=== PATIENT | male | born 1995 | race Caucasian/White ===

== ENCOUNTER 2018-10-21 14:39 | Emergency (ER) | payer MEDICAID ==
[~2018-10-21] VITALS: Ht 175.3 cm; Wt 69.1 kg
[~2018-10-21 14:39] MED LIST: DEXM2.5T; DIPH25CA83 PO; HYDR1TAB PO; IBUP-1984 PO; METH27TA7 PO; RISP0.2555 PO
[2018-10-21 14:41] VITALS: BP 108/67
== END 2018-10-21 15:12 ==
LOC: ER 14:39
DX: S50.812A Abrasion of left forearm, initial encounter (principal); F12.90 Cannabis use, unspecified, uncomplicated; F17.200 Nicotine dependence, unspecified, uncomplicated; Z79.899 Other long term (current) drug therapy; Y04.0XXA Assault by unarmed brawl or fight, initial encounter; Y93.89 Activity, other specified; Y92.89 Other specified places as the place of occurrence of the external cause; Y99.9 Unspecified external cause status
CPT/HCPCS: 99283

== ENCOUNTER 2023-02-23 09:49 | Emergency (ER) | payer MEDICAID ==
[~2023-02-23] VITALS: Ht 175.3 cm; Wt 67.1 kg
[2023-02-23] MEDS ORDERED: DOXY-11 PO (11:11)
[2023-02-23] MEDS ORDERED: NAPR-56 PO (11:11)
[2023-02-23 11:21] VITALS: BP 120/78; PULSE 62; RESP 16; TEMP 98.2; O2SAT 98
== END 2023-02-23 11:20 | disposition home or self-care (01) ==
LOC: ER 09:50
DX: K04.7 Periapical abscess without sinus (principal); F12.90 Cannabis use, unspecified, uncomplicated; Z88.7 Allergy status to serum and vaccine; Z79.1 Long term (current) use of non-steroidal anti-inflammatories (NSAID); Z79.899 Other long term (current) drug therapy
CPT/HCPCS: 99283